=== PATIENT | male | born 2000 | race Caucasian/White ===

== ENCOUNTER → 2022-10-04 | Emergency (ER) | payer SELFPAY ==
[~2022-10-04] VITALS: Ht 175.3 cm; Wt 95.7 kg
[~2022-10-04] MED LIST: ACET-8386 PO; BACITRACIN OINT 500 UNITS/GM PKT TP ONE; CEPH-588 PO; IBUP-2213 PO; IBUPROFEN 600 MG TAB PO ONE; LIDOCAINE 1% 500 MG/ 50 ML VIAL INJ ONE; LIDOCAINE MPF 1% 5 ML ONE
[2022-10-04 13:21] VITALS: BP 124/72
--- NOTE | 2022-10-04 14:30 | NUR ---
22/M PRESENTS TO ED WITH C/O LEFT PINKY LACERATION S/P CLOSING A CAR ENCINAS ONTO HIS FINGER TODAY. BLEEDING CONTROLLED WITH PRESSURE IN PLACE. ROM LIMITED DUE TO PAIN, PATIENT DENIES PAIN UPON ASSESSMENT.
--- NOTE | 2022-10-04 15:04 | NUR ---
PT RECEIVED, CARE ASSUMED. PT PRESENTS SELF TO ER FOR EVALUATION OF LEFT HAND PINKY LACERATION. PLACED GAUZE TO AREA. AWAITING TO BE SEEN BY
[2022-10-04 16:57] VITALS: BP 130/78
--- NOTE | 2022-10-04 16:58 | NUR ---
Patient discharged with v/s stable. Written and verbal after care instructions given and explained. Patient alert, oriented and verbalized understanding of instructions. Ambulatory with steady gait. All questions addressed prior to discharge. ID band removed. Patient advised to follow up with PMD. Rx of keflex, motrin given. Patient educated on indication of medication including possible reaction and side effects. Opportunity to ask questions provided and answered.
== END | disposition home or self-care (01) ==
LOC: EDBD 13:12 → MED 13:12
DX: S62.637A Displaced fracture of distal phalanx of left little finger, initial encounter for closed fracture (principal); X58.XXXA Exposure to other specified factors, initial encounter; Y93.89 Activity, other specified; Y92.89 Other specified places as the place of occurrence of the external cause; Y99.8 Other external cause status
CPT/HCPCS: 12001; 73140; 90471; 90715; 99283; J2001